=== PATIENT | female | born 1975 | race Caucasian/White ===

== ENCOUNTER 2017-09-17 14:00 | Emergency (ER) | payer BC ==
[~2017-09-17] VITALS: Ht 154.9 cm; Wt 40.0 kg
[2017-09-17 14:02] VITALS: BP 173/102; PULSE 101; RESP 16; TEMP 98.2; O2SAT 99
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
[2017-09-17] MEDS ORDERED: ROBA500T PO (14:41)
== END 2017-09-17 14:58 | disposition home or self-care (01) ==
LOC: PHEFT 14:00
DX: S10.93XA Contusion of unspecified part of neck, initial encounter (principal); Y04.2XXA Assault by strike against or bumped into by another person, initial encounter; Z79.899 Other long term (current) drug therapy; Z88.5 Allergy status to narcotic agent
CPT/HCPCS: 99283

== ENCOUNTER 2017-09-19 03:49 | Emergency (ER) | payer BC ==
[~2017-09-19] VITALS: Ht 154.9 cm; Wt 41.0 kg
[~2017-09-19 03:49] MED LIST: ROBA500T PO
[2017-09-19 03:56] VITALS: BP 148/77; PULSE 102; RESP 18; TEMP 98.1; O2SAT 99
[2017-09-19] MEDS ORDERED: IBUP-232 PO (04:19)
[2017-09-19] MEDS ORDERED: CLON.5 PO (04:19)
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
[2017-09-19 06:31] VITALS: BP 118/79; PULSE 90; RESP 16; O2SAT 100
[2017-09-19] MEDS ORDERED: FIORINAL2 PO (06:35)
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
== END 2017-09-19 06:58 | disposition home or self-care (01) ==
LOC: PHED 03:49
DX: G43.909 Migraine, unspecified, not intractable, without status migrainosus (principal); G44.209 Tension-type headache, unspecified, not intractable; F41.8 Other specified anxiety disorders; Z86.79 Personal history of other diseases of the circulatory system; Z86.69 Personal history of other diseases of the nervous system and sense organs
CPT/HCPCS: 70450; 99284